=== PATIENT | male | born 1950 | race Caucasian/White ===

== ENCOUNTER → 2016-10-05 | Outpatient (CLI) | payer OTHER ==
[2016-10-05 12:24] LABS: HEMOGLOBIN A1C 8.11 % (4.2-6.0); MEAN BLOOD GLUCOSE (CALC) 184.063 mg/dL
[2016-10-05 12:50] LABS: BLOOD UREA NITROGEN 18 mg/dL (7-22); CALCIUM 9.8 mg/dL (8.7-10.7); CHLORIDE 101 meq/L (98-112); EST GLOMERULAR FILTRATION > 60 (>60 ml/min/1.73m(2)); GLUCOSE 104 mg/dL (78-110); HDL CHOLESTEROL 34 mg/dL (40-150); POTASSIUM 4.3 meq/L (3.8-5.2); SODIUM 135 meq/L (135-145)
[2016-10-05 13:02] LABS: PROTHROMBIN TIME 22.6 secs (9.7-11.4)
[2016-10-05 13:46] LABS: HEMATOCRIT 46.7 % (42.0-52.0); HEMOGLOBIN 16.3 g/dL (14.0-18.0); RED BLOOD COUNT 5.26 10^6/uL (4.70-6.10); WHITE BLOOD COUNT 15.64 10^3/uL (4.8-10.8)
[2016-10-05 13:47] LABS: BASOPHILS % (AUTO) 0.4 % (0-1); EOSINOPHILS % (AUTO) 2.4 % (0-8); LYMPHOCYTES % (AUTO) 33.4 % (10-50); MEAN CORPUSCULAR HGB CONC 34.9 g/dL (33-37); MEAN PLATELET VOLUME 9.6 FL (7.4-12.2); MONOCYTES % (AUTO) 8.1 % (5-15); NEUTROPHILS % (AUTO) 55.1 % (50-80); RDW COEFFICIENT OF VARIATION 13.5 % (11.5-14.5)
[2016-10-05 13:48] LABS: BASOPHILS # (AUTO) 0.06 10*3/UL; IMM GRAN % (AUTO) 0.6 % (0-5); IMM GRAN# (AUTO) 0.09 10*3/UL; LYMPHOCYTES # (AUTO) 5.22 10*3/uL; MONOCYTES # (AUTO) 1.26 10*3/UL (0.3-0.8); NEUTROPHILS # (AUTO) 8.64 10*3/UL; PLATELET MORPHOLOGY COMMENT NORMAL MORPHOLOGY (NORM)
[2016-10-05 16:44] LABS: TRIGLYCERIDES 534 mg/dL (44-200)
== END ==
LOC: LAB 11:50
PROVIDERS: ATTEND Family Medicine
DX: E11.9 Type 2 diabetes mellitus without complications (principal); I48.91 Unspecified atrial fibrillation
CPT/HCPCS: 36415; 80048; 80061; 80162; 83036; 85025; 85610

== ENCOUNTER → 2017-01-04 | Outpatient (CLI) | payer SELFPAY ==
--- NOTE | 2017-01-04 20:05 | DI ---
LUMBAR SPINE SERIES, 01/04/2017 2:19 PM: Clinical History: Low back pain at L4-5 level. Previous Exam: None at this facility. Upright AP and lateral and upright lateral flexion and extension views are submitted. 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 The vertebral bodies are of normal height and size. There is moderate L5-S1 disc space narrowing and the remaining lumbar vertebral disc spaces are of normal height. Post erior alignment is normal and there is no instability with flexion and extension maneuvers. 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 The pedicles a nd remaining posterior elements are unremarkable. Both SI joints are normal. The abdominal aorta is c alcified but has a normal caliber. Readin. Chronic L5-S1 disc space narrowing. 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 2. There is no instability noted with flexion and extension maneuvers.
== END ==
LOC: MOB RAD 14:02
DX: M54.5 Low back pain (principal); M62.830 Muscle spasm of back; M48.06 Spinal stenosis, lumbar region; M47.816 Spondylosis without myelopathy or radiculopathy, lumbar region
CPT/HCPCS: 72120

== ENCOUNTER → 2017-03-14 | Outpatient (CLI) | payer OTHER | LOC: LAB 11:55 | PROVIDERS: ATTEND Family Medicine | DX: Z79.01 Long term (current) use of anticoagulants (principal) | CPT/HCPCS: 36415; 85610 ==